=== PATIENT | male | born 1935 | race Caucasian/White ===

== ENCOUNTER 2018-07-02 14:43 | Outpatient (CLI) | payer OTHER ==
[~2018-07-02 14:43] MED LIST: ATORVASTATIN CA20 MG; INDOMETHACIN25 MG PO; LAMICTAL100 MG PO; LEVOTHYROXINE50 MCG; LEVOXYL50 MCG PO; NORVASC5 MG; PROTONIX40 MG PO; QUINAPRIL HCL40 MG PO; ZANTAC150 MG PO
== END 2018-07-02 14:58 | disposition home or self-care (01) ==
LOC: RAD 14:43
DX: M41.56 Other secondary scoliosis, lumbar region (principal)

== ENCOUNTER 2022-01-07 11:00 | Outpatient (CLI) | payer OTHER | END 2022-01-07 11:10 | disposition home or self-care (01) | LOC: PPH VACUNA 11:00 | PROVIDERS: ATTEND Emergency Medicine Pediatric Emergency Medicine | DX: Z23 Encounter for immunization (principal) ==

== ENCOUNTER 2022-10-27 13:15 | Emergency (ER) | payer OTHER ==
[~2022-10-27] VITALS: Ht 180.3 cm; Wt 68.0 kg
== END 2022-10-27 18:44 | disposition home or self-care (01) ==
LOC: ER 13:15
DX: K52.9 Noninfective gastroenteritis and colitis, unspecified (principal); I10 Essential (primary) hypertension; E78.00 Pure hypercholesterolemia, unspecified; G40.89 Other seizures

== ENCOUNTER 2023-02-21 08:47 | Inpatient (IN) | payer OTHER ==
[~2023-02-21] VITALS: Ht 180.3 cm; Wt 68.0 kg
--- NOTE | 2023-02-21 08:52 | NUR ---
PTE NO CONTESTA AL MAGDI .
--- NOTE | 2023-02-21 09:04 | NUR ---
SE LLAMA POR 2DA OCASION Y NO CONTESTA.
[2023-02-21] MEDS ORDERED: CASODEX50 MG PO (09:24)
--- NOTE | 2023-02-21 09:24 | NUR ---
PTE REFIERE MALESTAR DE ABDOMEN , NO DIARREAS Y NO VOMITOS.CHRISTI EL DOLOR VIENE INTERMITENTE. SE PASA A PASILLO.
--- NOTE | 2023-02-21 09:57 | NUR ---
PTE ES EVALUADO POR DRA TSE. SE ORIENTA A PTE SOBRE TRATAMIENTO MEDICO Y VERBALIZA QUE ACEPTA. SE EJECUTA ORDEN MEDICA EN WOOD TOTALIDAD.
--- NOTE | 2023-02-21 15:09 | NUR ---
SE RECIBE PTE ALERTA ORIENTADO X3 EN COMPANIA DE FAMILIAR.EN FRANCISCO CON BARANDAS ELEVADAS POR WOOD SEGURIDAD.VENOPUNCION PATENTE GABE DE EDEMA Y ERITEMA RECIBIENDO 0.9 NSS +MVI BAJANDO 125 ML/HR.PENDIENTE A REEVALUACION MEDICA.
== END 2023-02-23 20:21 | disposition home or self-care (01) | DRG 389 ==
LOC: ER 08:47 → MEDI 18:03 → MEDJ 18:03
PROVIDERS: ADMIT Internal Medicine; ATTEND Internal Medicine
PROC: BW21YZZ Computerized Tomography (CT Scan) of Abdomen and Pelvis using Other Contrast (ICD-10-PCS; principal; 2023-02-21)
DX: K56.0 Paralytic ileus (principal); G40.89 Other seizures; N17.9 Acute kidney failure, unspecified; E86.0 Dehydration; K57.30 Diverticulosis of large intestine without perforation or abscess without bleeding; E03.9 Hypothyroidism, unspecified; N18.9 Chronic kidney disease, unspecified; I12.9 Hypertensive chronic kidney disease with stage 1 through stage 4 chronic kidney disease, or unspecified chronic kidney disease; Z20.822 Contact with and (suspected) exposure to COVID-19

== ENCOUNTER 2023-03-01 19:09 | Emergency (ER) | payer OTHER ==
[~2023-03-01] VITALS: Ht 180.3 cm; Wt 68.0 kg
[~2023-03-01 19:09] MED LIST changes: +CASODEX50 MG PO
[2023-03-01] MEDS ORDERED: MIRALAX17 GM (19:59)
[2023-03-01] MEDS ORDERED: FOLIC ACID (19:59)
[2023-03-02] MEDS ORDERED: ONDANSETRON ODT4 MG PO (07:07)
[2023-03-02] MEDS ORDERED: PEPCID40 MG PO (07:07)
== END 2023-03-02 07:20 ==
LOC: ER 19:09
DX: R10.13 Epigastric pain (principal); I10 Essential (primary) hypertension; E03.8 Other specified hypothyroidism

== ENCOUNTER 2023-08-11 08:16 | Emergency (ER) | payer OTHER ==
[~2023-08-11] VITALS: Ht 177.8 cm; Wt 65.8 kg
[~2023-08-11 08:16] MED LIST changes: +FOLIC ACID; +MIRALAX17 GM; +ONDANSETRON ODT4 MG PO; +PEPCID40 MG PO
[2023-08-11 09:34] LABS: HEMATOCRIT 39.9 % (39.0-48.0); HEMOGLOBIN 14.1 g/dL (13-16.00); MEAN CELL VOLUME 96.6 fL (80.0-100.00); MEAN CORPUSCULAR HGB CONC 35.2 g/dl (32.0-36.0); PLATELET COUNT 175 K/uL (150-450); RED BLOOD COUNT 4.13 M/uL (4.00-6.00); RED CELL DISTRIBUTION WIDTH 13.2 % (11.5-14.5)
[2023-08-11 10:02] LABS: ALBUMIN 3.5 gm/dL (3.4-5.0); BILIRUBIN TOTAL 0.72 mg/dL (0.3-1.2); CALCIUM 9.1 mg/dL (8.5-10.1); CREATININE SERUM 1.44 mg/dL (0.70-1.30); GFR 46.62; GLOBULINA 3.2 G/DL (2.4-3.5); POTASSIUM 3.72 mEq/L (3.5-5.1); TOTAL PROTEIN 6.7 gm/dL (6.4-8.2)
== END 2023-08-11 11:18 | disposition home or self-care (01) ==
LOC: ER 08:16
PROVIDERS: Emergency Medicine
DX: K29.70 Gastritis, unspecified, without bleeding (principal); Z85.038 Personal history of other malignant neoplasm of large intestine; E07.89 Other specified disorders of thyroid; Z87.19 Personal history of other diseases of the digestive system
CPT/HCPCS: 36415; 96365; 99284; J3490

== ENCOUNTER 2023-11-07 16:18 | Emergency (ER) | payer OTHER ==
[~2023-11-07] VITALS: Ht 180.3 cm; Wt 63.5 kg
[2023-11-07] MEDS ORDERED: FOLIC ACID20 MG PO (16:50)
[2023-11-07] MEDS ORDERED: MIRALAX510 GM PO (16:51)
[2023-11-07] MEDS ORDERED: 0.9 % SODIUM CHLORIDE 1,000 ML IV SCH (17:00)
[2023-11-07 17:32] LABS: HEMATOCRIT 41.5 % (39.0-48.0); HEMOGLOBIN 14.7 g/dL (13-16.00); MEAN CELL VOLUME 96.2 fL (80.0-100.00); MEAN CORPUSCULAR HEMOGLOBIN 34.2 pg (27.00-32.0); MEAN CORPUSCULAR HGB CONC 35.6 g/dl (32.0-36.0); PLATELET COUNT 191 K/uL (150-450); RED BLOOD COUNT 4.31 M/uL (4.00-6.00)
[2023-11-07 17:56] LABS: CALCIUM 8.9 mg/dL (8.5-10.1); CREATININE SERUM 1.55 mg/dL (0.70-1.30); GFR 42.73; POTASSIUM 3.97 mEq/L (3.5-5.1)
[2023-11-07 18:55] LABS: URINE APPEARANCE Clear; URINE BILIRRUBIN Negative (NEGATIVE); URINE BLOOD Trace; URINE COLOR Yellow; URINE GLUCOSE Negative (NEGATIVE); URINE LEUKOCYTE Negative; URINE NITRATE Negative; URINE PROTEIN Negative (NEGATIVE); URINE UROBILINOGEN 0.2 E.U./dl
[2023-11-07 18:59] LABS: URINE EPITHELIAL CELLS 1.8 uL (0.0-38.8); URINE RBC 25.2 uL (0.0-20.8)
[2023-11-07 19:02] LABS: URINE BACTERIA 2.5 uL (0.0-1933); URINE WBC 0.7 uL (0.0-23.2)
[2023-11-07] MEDS ORDERED: DICYCLOMINE HCL 20 MG TABLET PO ONE (19:30)
[2023-11-07] MEDS ORDERED: KETOROLAC TROMETHAMINE 30 MG VIAL IV ONE (22:30)
== END 2023-11-08 00:35 | disposition home or self-care (01) ==
LOC: ER 16:19
PROVIDERS: Emergency Medicine
DX: K52.9 Noninfective gastroenteritis and colitis, unspecified (principal); R10.9 Unspecified abdominal pain; I10 Essential (primary) hypertension; E03.8 Other specified hypothyroidism
CPT/HCPCS: 36415; 74177; 96365; 96366; 99284; J1885; J7030; Q9965

== ENCOUNTER 2024-03-18 18:58 | Emergency (ER) | payer OTHER ==
[~2024-03-18] VITALS: Ht 180.3 cm; Wt 65.8 kg
[~2024-03-18 18:58] MED LIST changes: +FOLIC ACID20 MG PO; +MIRALAX510 GM PO
[2024-03-18] MEDS ORDERED: 0.9 % SODIUM CHLORIDE 1,000 ML IV ONE (20:45)
[2024-03-18] MEDS ORDERED: FAMOtidine 10 MG/ML (4ML VIAL) IV ONE (20:45)
[2024-03-18 21:19] LABS: HEMATOCRIT 39.1 % (39.0-48.0); HEMOGLOBIN 13.9 g/dL (13-16.00); MEAN CELL VOLUME 97.5 fL (80.0-100.00); MEAN CORPUSCULAR HEMOGLOBIN 34.6 pg (27.00-32.0); MEAN CORPUSCULAR HGB CONC 35.5 g/dl (32.0-36.0); PLATELET COUNT 165 K/uL (150-450); RED BLOOD COUNT 4.01 M/uL (4.00-6.00); RED CELL DISTRIBUTION WIDTH 13.8 % (11.5-14.5)
[2024-03-18 21:42] LABS: ALBUMIN 3.4 gm/dL (3.4-5.0); BILIRUBIN TOTAL 0.76 mg/dL (0.3-1.2); CREATININE SERUM 1.44 mg/dL (0.70-1.30); GFR 46.51; GLOBULINA 3.1 G/DL (2.4-3.5); POTASSIUM 4.02 mEq/L (3.5-5.1); TOTAL PROTEIN 6.5 gm/dL (6.4-8.2)
[2024-03-18 21:43] LABS: PH,URINE 5.5 (5.0-8.0); URINE APPEARANCE Clear; URINE BILIRRUBIN Negative (NEGATIVE); URINE BLOOD Negative; URINE COLOR Yellow; URINE GLUCOSE Negative (NEGATIVE); URINE KETONE Trace (NEGATIVE); URINE LEUKOCYTE Negative; URINE NITRATE Negative; URINE PROTEIN Trace (NEGATIVE); URINE UROBILINOGEN 0.2 E.U./dl
[2024-03-18 21:47] LABS: URINE BACTERIA 8.8 uL (0.0-1933); URINE EPITHELIAL CELLS 3.2 uL (0.0-38.8); URINE RBC 13.4 uL (0.0-20.8)
[2024-03-18 21:53] LABS: URINE CAST 0.91 uL (0.0-1.40); URINE WBC 1.2 uL (0.0-23.2)
[2024-03-18] MEDS ORDERED: KETO10TA2 PO (23:00)
[2024-03-18] MEDS ORDERED: PEPCID AC20 MG PO (23:00)
[2024-03-18] MEDS ORDERED: KETOROLAC TROMETHAMINE 30 MG VIAL IV ONE (23:00)
== END 2024-03-18 23:18 | disposition home or self-care (01) ==
LOC: ER 18:59
PROVIDERS: General Practice
DX: R10.13 Epigastric pain (principal); R11.0 Nausea; I10 Essential (primary) hypertension; Z85.038 Personal history of other malignant neoplasm of large intestine; Z85.850 Personal history of malignant neoplasm of thyroid
CPT/HCPCS: 36415; 71045; 93005; 96365; 96366; 99283; J1885; J3490; J7030

== ENCOUNTER 2025-06-25 10:49 | Emergency (ER) | payer OTHER ==
[~2025-06-25] VITALS: Ht 180.3 cm; Wt 58.5 kg
[~2025-06-25 10:49] MED LIST changes: +KETO10TA2 PO; +PEPCID AC20 MG PO
[2025-06-25 11:17] VITALS: BP 163/86; O2SAT 98
[2025-06-25 13:28] LABS: BASO % 0.3 % (0.1-1.2); EOS # 0.11 (0.04-0.54); EOS % 1.6 % (0.7-7.0); LYMPH # 1.89 (1.18-3.74); LYMPH % 28.3 % (19.3-53.1); MEAN PLATELET VOLUME 9.50 fl (9.4-12.4); MONO # 0.49 (0.24-0.82); MONO % 7.3 % (4.7-12.5); NEUT # 4.16 (1.56-6.13); NEUT % 62.2 % (34.0-71.1); RED CELL DISTRIBUTION WIDTH 12.7 % (11.6-14.4)
[2025-06-25 13:50] LABS: INR 0.98
[2025-06-25 13:57] LABS: ALT/SGPT 13.0 U/L (12-78); AST/SGOT 15.0 U/L (15-37); BILIRUBIN TOTAL 0.8 mg/dL (0.3-1.2); BUN CREA RATIO 17.0 (7.0-25.0); CREATININE SERUM 1.22 mg/dL (0.70-1.30); GFR 56.19; GLOBULINA 3.3 G/DL (2.4-3.5); GLUCOSE FASTING 119.0 mg/dL (65-100); OSMOLALITY SERUM 284.0 MOSM/KG (275-295)
== END 2025-06-25 15:39 | disposition home or self-care (01) ==
LOC: EMR PED 10:49 → ER 10:56 → EMR PED 10:56 → ER 15:39
PROVIDERS: General Practice
DX: S09.8XXA Other specified injuries of head, initial encounter (principal); W19.XXXA Unspecified fall, initial encounter; Y93.89 Activity, other specified; Y92.091 Bathroom in other non-institutional residence as the place of occurrence of the external cause